=== PATIENT | female | born 1940 | race Caucasian/White ===

== ENCOUNTER 2018-11-01 15:25 | Inpatient (IN) | payer MEDICARE, BC ==
[~2018-11-01] VITALS: Ht 162.6 cm; Wt 62.1 kg
[2018-11-01] MEDS ORDERED: LORA0.5T PO (15:57)
[2018-11-01] MEDS ORDERED: TEMA15CA PO (15:57)
[2018-11-01] MEDS ORDERED: METO25TA6 PO (15:57)
[2018-11-01 16:08] LABS: BASOPHILS # (AUTO) 0.1 K/uL (0.0-8.0); BASOPHILS % (AUTO) 1.1 % (0.0-2.0); EOSINOPHILS % (AUTO) 0.9 % (0.0-7.0); HEMOGLOBIN 12.6 g/dL (10.9-14.3); LYMPHOCYTES # (AUTO) 1.2 K/uL (20.0-40.0); LYMPHOCYTES % (AUTO) 24.9 % (20.5-51.5); MEAN CORPUSCULAR HEMOGLOBIN 31.4 uug (24.7-32.8); MEAN CORPUSCULAR HGB CONC 33 g/dL (32.3-35.6); MEAN CORPUSCULAR VOLUME 94.4 fL (75.5-95.3); MONOCYTES # (AUTO) 0.4 K/uL (2.0-10.0); MONOCYTES % (AUTO) 7.9 % (0.0-11.0); NEUTROPHILS # (AUTO) 3.1 K/uL (1.8-8.9); NEUTROPHILS % (AUTO) 65.2 % (38.5-71.5); PLATELET COUNT (AUTO) 299 K/uL (179-408); RED BLOOD CELL COUNT(AUTO) 4.03 MIL/uL (3.63-4.92); WHITE BLOOD COUNT (AUTO) 4.8 K/uL (3.8-11.8)
[2018-11-01 16:22] LABS: ALANINE AMINOTRANSFERASE 255 U/L (14-59); ALKALINE PHOSPHATASE 82 U/L (50-136); ASPARTATE AMINOTRANSFERASE 89 U/L (15-37); BILIRUBIN,DIRECT 0.1 mg/dL (0.0-0.2); BILIRUBIN,TOTAL 0.4 mg/dL (0.2-1.0); CARBON DIOXIDE 25 mmol/L (21-32); CHLORIDE 101 mmol/L (98-107); CREATININE 0.7 mg/dL (0.6-1.3); GLUCOSE 111 mg/dL (74-106); TOTAL PROTEIN, SERUM 6.7 g/dL (6.4-8.2); UREA NITROGEN, BLOOD 16 mg/dL (7-18)
[2018-11-01 16:30] LABS: ACETAMINOPHEN < 2.0 ug/mL (10-30)
[2018-11-01 16:35] LABS: ETHANOL < 3 MG/DL (0-0)
[2018-11-01 17:21] LABS: *BILIRUBIN,URIN NEGATIVE (NEGATIVE); *BLOOD, URINE NEGATIVE (NEGATIVE); *CLARITY,URINE CLEAR (CLEAR); *COLOR,URINE YELLOW (YELLOW); *KETONES,URINE NEGATIVE (NEGATIVE); LEUKOCYTE ESTERASE ,URINE NEGATIVE (NEGATIVE); NITRITE, URINE NEGATIVE (NEGATIVE); UGLUCOSE NEGATIVE (NEGATIVE)
[2018-11-01 17:31] LABS: *AMPHETAMINE, URINE NEGATIVE (NEGATIVE); *BARBITURATE, URINE NEGATIVE (NEGATIVE); *CANNABINOID, URINE NEGATIVE (NEGATIVE); *COCCAINE, URINE NEGATIVE (NEGATIVE); *OPIATE, URINE NEGATIVE (NEGATIVE); *PHENCYCLIDINE SCREEN,URINE NEGATIVE (NEGATIVE)
[2018-11-01 17:37] LABS: RBC,URINE NONE SEEN /HPF (0-3)
[2018-11-01 17:38] LABS: SQUAMOUS EPITHELIAL CELL,UR FEW /HPF (NONE SEEN); WBC,URINE 0-3 /HPF (0-3)
[2018-11-01 20:00] VITALS: BP 144/82
[2018-11-01] MEDS ORDERED: ACETAMINOPHEN 325 MG TABLET PO PRN (21:00)
[2018-11-01] MEDS ORDERED: MAGNESIUM HYDROXIDE 30 ML LIQUID UDC PO PRN (21:00)
[2018-11-01] MEDS ORDERED: MAG HYDROX/AL HYDROX/SIMETH 30 ML LIQUID UDC PO PRN (21:00)
[2018-11-01] MEDS: TEMAZEPAM 7.5 MG CAPSULE PO PRN (22:58)
[2018-11-02 07:30] VITALS: BP 143/76
[2018-11-02 07:48] LABS: BILIRUBIN,DIRECT 0.1 mg/dL (0.0-0.2); BILIRUBIN,TOTAL 0.7 mg/dL (0.2-1.0); TOTAL PROTEIN, SERUM 6.9 g/dL (6.4-8.2)
[2018-11-02 07:58] LABS: THYROID STIMULATING HORMONE 1.189 mIU/mL (0.358-3.740)
[2018-11-02] MEDS: METOPROLOL TARTRATE 25 MG TABLET PO SCH ×2 (08:18→16:14)
[2018-11-02] MEDS: SERTRALINE HCL 50 MG TABLET PO SCH (12:46)
[2018-11-02 16:00] VITALS: BP 154/80
[2018-11-02] MEDS: TEMAZEPAM 7.5 MG CAPSULE PO PRN (21:09)
[2018-11-02 21:18] VITALS: BP 133/69
[2018-11-03 07:13] LABS: ALANINE AMINOTRANSFERASE 235 U/L (14-59); ALKALINE PHOSPHATASE 90 U/L (50-136); ASPARTATE AMINOTRANSFERASE 80 U/L (15-37); BILIRUBIN,TOTAL 0.6 mg/dL (0.2-1.0); CARBON DIOXIDE 29 mmol/L (21-32); CHLORIDE 100 mmol/L (98-107); CREATININE 0.6 mg/dL (0.6-1.3); GLUCOSE 103 mg/dL (74-106); POTASSIUM 4.2 mmol/L (3.5-5.1); TOTAL PROTEIN, SERUM 6.9 g/dL (6.4-8.2); UREA NITROGEN, BLOOD 10 mg/dL (7-18)
[2018-11-03 07:44] VITALS: BP 156/61
[2018-11-03] MEDS: METOPROLOL TARTRATE 25 MG TABLET PO SCH ×2 (08:45→18:07)
[2018-11-03] MEDS: SERTRALINE HCL 50 MG TABLET PO SCH (13:03)
[2018-11-03] MEDS: LISINOPRIL 5 MG TABLET PO SCH (13:11)
[2018-11-03 16:27] VITALS: BP 119/70
[2018-11-03 21:17] VITALS: BP 121/64
[2018-11-03] MEDS: TEMAZEPAM 7.5 MG CAPSULE PO PRN (21:45)
[2018-11-04 07:30] VITALS: BP 124/63
[2018-11-04] MEDS: LISINOPRIL 5 MG TABLET PO SCH (09:03)
[2018-11-04] MEDS: METOPROLOL TARTRATE 25 MG TABLET PO SCH ×2 (09:05→16:55)
[2018-11-04] MEDS: SERTRALINE HCL 50 MG TABLET PO SCH (12:54)
[2018-11-04 16:00] VITALS: BP 97/55
[2018-11-04 20:07] VITALS: BP 104/65
[2018-11-04] MEDS: TEMAZEPAM 7.5 MG CAPSULE PO PRN (21:06)
[2018-11-05 06:51] LABS: BASOPHILS # (AUTO) 0.1 K/uL (0.0-8.0); BASOPHILS % (AUTO) 1.2 % (0.0-2.0); HEMATOCRIT 39.6 % (31.2-41.9); HEMOGLOBIN 13.6 g/dL (10.9-14.3); LYMPHOCYTES # (AUTO) 1.3 K/uL (20.0-40.0); LYMPHOCYTES % (AUTO) 30.1 % (20.5-51.5); MEAN CORPUSCULAR HEMOGLOBIN 32.2 uug (24.7-32.8); MEAN CORPUSCULAR HGB CONC 34 g/dL (32.3-35.6); MEAN CORPUSCULAR VOLUME 93.9 fL (75.5-95.3); MONOCYTES # (AUTO) 0.4 K/uL (2.0-10.0); MONOCYTES % (AUTO) 8.8 % (0.0-11.0); NEUTROPHILS # (AUTO) 2.5 K/uL (1.8-8.9); NEUTROPHILS % (AUTO) 58.9 % (38.5-71.5); PLATELET COUNT (AUTO) 293 K/uL (179-408); RED BLOOD CELL COUNT(AUTO) 4.21 MIL/uL (3.63-4.92); WHITE BLOOD COUNT (AUTO) 4.2 K/uL (3.8-11.8)
[2018-11-05 07:10] LABS: ALANINE AMINOTRANSFERASE 202 U/L (14-59); ALKALINE PHOSPHATASE 97 U/L (50-136); ASPARTATE AMINOTRANSFERASE 68 U/L (15-37); BILIRUBIN,TOTAL 0.6 mg/dL (0.2-1.0); CARBON DIOXIDE 29 mmol/L (21-32); CHLORIDE 101 mmol/L (98-107); CREATININE 0.7 mg/dL (0.6-1.3); GLUCOSE 100 mg/dL (74-106); POTASSIUM 4.3 mmol/L (3.5-5.1); TOTAL PROTEIN, SERUM 7.1 g/dL (6.4-8.2); UREA NITROGEN, BLOOD 11 mg/dL (7-18)
[2018-11-05 08:00] VITALS: BP 130/75
[2018-11-05] MEDS: LISINOPRIL 5 MG TABLET PO SCH (08:56)
[2018-11-05] MEDS: METOPROLOL TARTRATE 25 MG TABLET PO SCH ×2 (08:56→17:10)
[2018-11-05] MEDS: SERTRALINE HCL 50 MG TABLET PO SCH (12:45)
[2018-11-05 15:49] VITALS: BP 116/58
[2018-11-05 20:12] VITALS: BP 115/64
[2018-11-05] MEDS: TEMAZEPAM 7.5 MG CAPSULE PO PRN (20:44)
[2018-11-06] MEDS: LORAZEPAM 0.5 MG TABLET PO PRN (04:23)
[2018-11-06 07:30] VITALS: BP 113/62
[2018-11-06] MEDS: METOPROLOL TARTRATE 25 MG TABLET PO SCH ×2 (08:18→16:47)
[2018-11-06] MEDS: LISINOPRIL 5 MG TABLET PO SCH (08:18)
[2018-11-06] MEDS: SERTRALINE HCL 50 MG TABLET PO SCH (12:03)
[2018-11-06 17:03] VITALS: BP 120/63
[2018-11-06 20:00] VITALS: BP 112/58
[2018-11-06] MEDS: TEMAZEPAM 7.5 MG CAPSULE PO PRN ×2 (21:20→22:38)
[2018-11-07 07:30] VITALS: BP 102/59
[2018-11-07] MEDS: LISINOPRIL 5 MG TABLET PO SCH (08:51)
[2018-11-07] MEDS: METOPROLOL TARTRATE 25 MG TABLET PO SCH ×2 (08:51→17:00)
[2018-11-07] MEDS ORDERED: SERTRALINE HCL 50 MG TABLET PO ONE (13:30)
[2018-11-07 15:03] LABS: EOSINOPHILS % (AUTO) 0.5 % (0.0-7.0); HEMOGLOBIN 13.4 g/dL (10.9-14.3); LYMPHOCYTES # (AUTO) 0.9 K/uL (20.0-40.0); LYMPHOCYTES % (AUTO) 18.2 % (20.5-51.5); MEAN CORPUSCULAR HEMOGLOBIN 31.4 uug (24.7-32.8); MEAN CORPUSCULAR HGB CONC 33 g/dL (32.3-35.6); MEAN CORPUSCULAR VOLUME 95.6 fL (75.5-95.3); MONOCYTES # (AUTO) 0.4 K/uL (2.0-10.0); NEUTROPHILS # (AUTO) 3.7 K/uL (1.8-8.9); NEUTROPHILS % (AUTO) 72.3 % (38.5-71.5); PLATELET COUNT (AUTO) 253 K/uL (179-408); RED BLOOD CELL COUNT(AUTO) 4.29 MIL/uL (3.63-4.92); WHITE BLOOD COUNT (AUTO) 5.1 K/uL (3.8-11.8)
[2018-11-07 15:18] LABS: BILIRUBIN,TOTAL 0.5 mg/dL (0.2-1.0); CREATININE 0.7 mg/dL (0.6-1.3); POTASSIUM 4.4 mmol/L (3.5-5.1); TOTAL PROTEIN, SERUM 7.2 g/dL (6.4-8.2)
[2018-11-07 16:16] VITALS: BP 127/85
[2018-11-07 20:00] VITALS: BP 143/82
[2018-11-07] MEDS: TEMAZEPAM 7.5 MG CAPSULE PO PRN (22:47)
[2018-11-08] MEDS: LORAZEPAM 0.5 MG TABLET PO PRN ×2 (00:10→07:02)
[2018-11-08 07:51] VITALS: BP 139/85
[2018-11-08] MEDS: LISINOPRIL 5 MG TABLET PO SCH (08:30)
[2018-11-08] MEDS: METOPROLOL TARTRATE 25 MG TABLET PO SCH (08:30)
[2018-11-08] MEDS ORDERED: SERTRALINE HCL 50 MG TABLET PO SCH (13:00)
[2018-11-08 15:08] VITALS: BP 92/64
== END 2018-11-08 17:00 | DRG 885 ==
LOC: ER 15:25 → GPS 19:53
PROVIDERS: ADMIT Psychiatry & Neurology Psychosomatic Medicine; ATTEND Student in an Organized Health Care Education/Training Program
DX: F33.2 Major depressive disorder, recurrent severe without psychotic features (principal); T39.1X2D Poisoning by 4-Aminophenol derivatives, intentional self-harm, subsequent encounter; R74.0 Nonspecific elevation of levels of transaminase and lactic acid dehydrogenase [LDH]; E78.5 Hyperlipidemia, unspecified; F41.9 Anxiety disorder, unspecified; I10 Essential (primary) hypertension; Z91.5 Personal history of self-harm
CPT/HCPCS: 36415; 80307; 84443; 85025; 93005; A4663; G0480; G0480-TC